=== PATIENT | male | born 1990 | race Caucasian/White ===

== ENCOUNTER → 2016-09-02 | Outpatient (CLI) | payer BC ==
[2016-09-02 19:45] LABS: Basophils # (A) 0.1 k/uL (0-0.2); Basophils % (A) 1 %; CH 29.4; CHCM 33.2; Eosinophils # (A) 0.4 k/uL (0-0.7); Eosinophils % (A) 4 %; HCT 50.1 % (39.0-53.0); HDW 2.43; HGB 16.6 gm/dL (13.0-17.5); Luc # (Auto) 0.18; Luc % (Auto) 2; Lymphocytes # (A) 2.8 k/uL (1.0-4.8); Lymphocytes % (A) 28 %; MCH 29.4 pg (25.0-35.0); MCV 88.9 fL (80.0-100.0); Mean Platelet Volume 8.9; Monocytes # (A) 0.6 k/uL (0-1.0); Monocytes % (A) 6 %; Neutrophils # (A) 6.1 k/uL (1.3-7.7); Neutrophils % (A) 60 %; RBC 5.63 m/uL (4.30-5.90); RDW 12.5 % (11.5-15.5); WBC 10.1 k/uL (3.8-10.6); WBC (Perox) 10.27
[2016-09-02 20:04] LABS: ALT 42 U/L (21-72); AST 30 U/L (17-59); Alkaline Phosphatase 75 U/L (38-126); Anion Gap 13 mmol/L; Blood Urea Nitrogen 17 mg/dL (9-20); Calcium 9.7 mg/dL (8.4-10.2); Carbon Dioxide 22 mmol/L (22-30); Chloride 109 mmol/L (98-107); Cholesterol 133 mg/dL (<200); Glucose 93 mg/dL (74-99); HDL Cholesterol 39 mg/dL (40-60); Non-African American GFR(MDRD) >60 (>60 ml/min/1.73 sqM); Potassium 4.1 mmol/L (3.5-5.1); Sodium 144 mmol/L (137-145); Total Bilirubin 0.6 mg/dL (0.2-1.3); Total Protein 7.5 g/dL (6.3-8.2); Triglycerides 120 mg/dL (<150)
[2016-09-04 14:02] LABS: Gliadin AB IgA, Deaminated 6 UNITS (<20); Gliadin AB IgG, Deaminated 2 UNITS (<20)
== END | disposition home or self-care (01) ==
LOC: MMGSC 10:10
PROVIDERS: ATTEND Family Medicine
DX: K92.1 Melena (principal); R10.9 Unspecified abdominal pain
CPT/HCPCS: 36415; 80053; 80061; 83516; 84439; 84443; 85025; 86003

== ENCOUNTER 2016-10-08 11:24 | Emergency (ER) | payer BC ==
--- NOTE | 2016-10-08 12:40 | ED ---
GI Bleed HPI - General Chief complaint: GI Bleed Stated complaint: blood in stool Time Seen by Provider: 10/08/16 12:15 Source: patient, RN notes reviewed Mode of arrival: ambulatory Limitations: no limitations - History of Present Illness Initial comments: 26-year-old male presents emergency Department chief complaint of rectal bleeding. Patient states she's had symptoms on and off for last month or 2. Patient states that his been at [facility] and to his primary care physician. Patient states he is scheduled to see GI physician Dr. Martin on October 13. Patient states that he had more episodes today so he was concerned. Patient states she has no abdominal pain. Denies any nausea, vomiting diarrhea. Patient states he didn't strain dental bowel movement feels that this may have caused it. Patient denies any abdominal surgeries in the past. Denies any dysuria or hematuria. - Related Data Home Medications Medication Instructions Recorded Confirmed Albuterol Inhaler [Ventolin Hfa 2 puff INHALATION RT-Q6H PRN 10/08/16 10/08/16 Inhaler] Polyethylene Glycol 3350 [Miralax] 17 gm PO DAILY PRN 10/08/16 10/08/16 Previous Rx's Medication Instructions Recorded Hydrocortisone/Pramoxine 0 applic RECTAL BID #1 bottle 10/08/16 [Proctofoam-Hc 1%-1% Foam] Allergies Allergy/AdvReac Type Severity Reaction Status Date / Time No Known Allergies Allergy Verified 10/08/16 12:14 Review of Systems ROS Statement: Those systems with pertinent positive or pertinent negative responses have been documented in the HPI. ROS Other: All systems not noted in ROS Statement are negative. Past Medical History Past Medical History: No Reported History History of Any Multi-Drug Resistant Organisms: None Reported Past Psychological History: No Psychological Hx Reported Smoking Status: Current every day smoker Past Alcohol Use History: None Reported Past Drug Use History: None Reported General Exam Limitations: no limitations General appearance: alert, in no apparent distress Head exam: Present: atraumatic, normocephalic, normal inspection Neck exam: Present: normal inspection. Absent: tenderness, meningismus, lymphadenopathy Respiratory exam: Present: normal lung sounds bilaterally. Absent: respiratory distress, wheezes, rales, rhonchi, stridor Cardiovascular Exam: Present: regular rate, normal rhythm, normal heart sounds. Absent: systolic murmur, diastolic murmur, rubs, gallop, clicks GI/Abdominal exam: Present: soft, normal bowel sounds. Absent: distended, tenderness, guarding, rebound, rigid Rectal exam: Present: normal inspection, normal rectal tone. Absent: black stool, bloody stool, hemorrhoids, mass Back exam: Absent: CVA tenderness (R), CVA tenderness (L) Course Vital Signs 10/08/16 11:28 Temperature 97.7 F Pulse Rate 72 Respiratory 18 Rate Blood Pressure 128/81 O2 Sat by Pulse 99 Oximetry Medical Decision Making - Medical Decision Making 26 showed male present emergency department with chief complaint of rectal bleeding. Patient's hemoglobin is stable at 15.6. Patient has appointment 5 days with GI. Patient will begin Proctofoam. Return parameters were discussed. - Lab Data Result diagrams: 10/08/16 12:30 Lab Results 10/08/16 10/08/16 Range/Units 12:30 12:30 WBC 7.5 (3.8-10.6) k/uL RBC 5.15 (4.30-5.90) m/uL Hgb 15.6 (13.0-17.5) gm/dL Hct 44.2 (39.0-53.0) % MCV 85.8 (80.0-100.0) fL MCH 30.3 (25.0-35.0) pg MCHC 35.3 (31.0-37.0) g/dL RDW 12.6 (11.5-15.5) % Plt Count 228 (150-450) k/uL Neutrophils % 59 % Lymphocytes % 28 % Monocytes % 6 % Eosinophils % 5 % Basophils % 1 % Neutrophils # 4.4 (1.3-7.7) k/uL Lymphocytes # 2.1 (1.0-4.8) k/uL Monocytes # 0.5 (0-1.0) k/uL Eosinophils # 0.4 (0-0.7) k/uL Basophils # 0.0 (0-0.2) k/uL Stool Occult Blood Positive (Negative) Disposition Clinical Impression: Rectal bleeding Disposition: HOME SELF-CARE Condition: Stable Instructions: Gastrointestinal Bleeding (ED) Additional Instructions: Please return to the Emergency Department if symptoms worsen or any other concerns. Prescriptions: Hydrocortisone/Pramoxine [Proctofoam-Hc 1%-1% Foam] 0 applic RECTAL BID #1 bottle Referrals: Angie Alcantar MD [Primary Care Provider] - 1-2 days Mague Martin MD [STAFF PHYSICIAN] - 1-2 days Time of Disposition: 13:14
[2016-10-08 12:57] LABS: Basophils % (A) 1 %; CH 29.9; Eosinophils # (A) 0.4 k/uL (0-0.7); Eosinophils % (A) 5 %; HCT 44.2 % (39.0-53.0); HDW 2.57; HGB 15.6 gm/dL (13.0-17.5); Luc # (Auto) 0.11; Luc % (Auto) 1; Lymphocytes # (A) 2.1 k/uL (1.0-4.8); Lymphocytes % (A) 28 %; MCH 30.3 pg (25.0-35.0); MCHC 35.3 g/dL (31.0-37.0); MCV 85.8 fL (80.0-100.0); Mean Platelet Volume 7.5; Monocytes # (A) 0.5 k/uL (0-1.0); Monocytes % (A) 6 %; Neutrophils # (A) 4.4 k/uL (1.3-7.7); Neutrophils % (A) 59 %; RBC 5.15 m/uL (4.30-5.90); RDW 12.6 % (11.5-15.5); WBC 7.5 k/uL (3.8-10.6); WBC (Perox) 7.58
[2016-10-08 13:04] LABS: INR 0.9 (<1.1); Prothrombin Time 9.7 sec (9.0-12.0)
[2016-10-08 13:14] LABS: Anion Gap 10 mmol/L; Blood Urea Nitrogen 17 mg/dL (9-20); Calcium 9.6 mg/dL (8.4-10.2); Carbon Dioxide 22 mmol/L (22-30); Chloride 110 mmol/L (98-107); Glucose 99 mg/dL (74-99); Non-African American GFR(MDRD) >60 (>60 ml/min/1.73 sqM); Potassium 4.3 mmol/L (3.5-5.1); Sodium 142 mmol/L (137-145)
[2016-10-08 13:22] VITALS: BP 115/67; PULSE 78; RESP 20; TEMP 97
== END 2016-10-08 13:32 | disposition home or self-care (01) ==
LOC: EC 11:24
DX: K62.5 Hemorrhage of anus and rectum (principal); F17.200 Nicotine dependence, unspecified, uncomplicated
CPT/HCPCS: 36415; 80048; 82272; 85025; 85610; 99284

== ENCOUNTER 2019-05-02 22:01 | Emergency (ER) | payer BC ==
[2019-05-02 22:09] VITALS: RESP 18; TEMP 98.5
[2019-05-02] MEDS ORDERED: ACETAMINOPHEN TAB 325 MG TAB PO STA (22:19)
[2019-05-02] MEDS ORDERED: LIDOCAINE 1% INJ 10MG/ML (20 ML MDV) SQ ONE (22:22)
--- NOTE | 2019-05-02 22:41 | CT ---
EXAMINATION TYPE: CT brain eladio herrera con DATE OF EXAM: 05/02/2019 COMPARISON: None HISTORY: Fall, head injury. CT DLP: 1643.8 mGycm Automated exposure control for dose reduction was used. TECHNIQUE: CT scan of the head and cervical spine are performed without contrast. FINDINGS: Ventricles of normal size. There is no mass effect nor midline shift. There is no sign of intracranial hemorrhage. There is no evidence of cerebral edema. The calvarium is intact. There is m ucus retention cyst right maxillary sinus. Cervical vertebra show some straightening. Disc spaces are fairly normal. Posterior elements are inta ct. Facet joints are intact. The skull base is intact. There is no evidence for fracture. Prevertebra l soft tissues appear normal. IMPRESSION: Negative CT scan of the brain. Negative CT scan cervical spine. Large mucus retention cyst right maxillary sinus. Minimal left maxillary sinusitis.
--- NOTE | 2019-05-02 23:06 | ED ---
General Adult HPI - General Chief complaint: Wound/Laceration Stated complaint: head wound Time Seen by Provider: 05/02/19 22:07 Source: patient Mode of arrival: ambulatory Limitations: no limitations - History of Present Illness Initial comments: Patient is a 29-year-old male presenting to emergency Department with a chief complaint of a head laceration. Patient reports that he was walking up the stairs when he bent over and he hit his head on the wall. Patient reports he was "seeing stars" but denies any nausea or vomiting or loss of consciousness. Patient denies any blurry vision, gait instability, paresthesias. Patient reports the pain is very mild and throbbing in nature. Patient reports some active bleeding at the time of injury in the parietal region. Patient denies taking medication to alleviate the symptoms. Patient reports his tetanus status is up-to-date. Patient is not on blood thinners. - Related Data Home Medications Medication Instructions Recorded Confirmed Albuterol Inhaler [Ventolin Hfa 2 puff INHALATION RT-Q6H PRN 10/08/16 10/08/16 Inhaler] Polyethylene Glycol 3350 [Miralax] 17 gm PO DAILY PRN 10/08/16 10/08/16 Previous Rx's Medication Instructions Recorded Hydrocortisone/Pramoxine 0 applic RECTAL BID #1 bottle 10/08/16 [Proctofoam-Hc 1%-1% Foam] Allergies Allergy/AdvReac Type Severity Reaction Status Date / Time No Known Allergies Allergy Verified 05/02/19 22:09 Review of Systems ROS Statement: Those systems with pertinent positive or pertinent negative responses have been documented in the HPI. ROS Other: All systems not noted in ROS Statement are negative. Past Medical History Past Medical History: No Reported History History of Any Multi-Drug Resistant Organisms: None Reported Additional Past Surgical History / Comment(s): head surgery as a kid. Past Psychological History: No Psychological Hx Reported Smoking Status: Current every day smoker Past Alcohol Use History: Rare Past Drug Use History: Marijuana General Exam Limitations: no limitations General appearance: alert, in no apparent distress Head exam: Present: normocephalic, normal inspection. Absent: atraumatic (2 cm superficial laceration on the parietal region.), other (Negative Powell sign, negative periorbital ecchymosis, negative hemotympanum.) Eye exam: Present: normal appearance, PERRL, EOMI Pupils: Present: normal accommodation ENT exam: Present: normal exam, normal oropharynx, mucous membranes moist, TM's normal bilaterally, normal external ear exam Neck exam: Present: normal inspection, full ROM Respiratory exam: Present: normal lung sounds bilaterally Cardiovascular Exam: Present: regular rate, normal rhythm, normal heart sounds Extremities exam: Present: normal inspection, full ROM Back exam: Present: normal inspection, full ROM Neurological exam: Present: alert, oriented X3, CN II-XII intact, normal gait Psychiatric exam: Present: normal affect, normal mood Skin exam: Present: warm, dry, intact, normal color Course Vital Signs 05/02/19 05/02/19 22:05 23:05 Temperature 98.5 F Pulse Rate 80 60 Respiratory 18 18 Rate Blood Pressure 163/75 129/69 O2 Sat by Pulse 97 98 Oximetry Procedures - Laceration Laceration #1 Consent Obtained: verbal consent Indication: laceration Site: scalp Size (cm): 2 Description: linear Depth: simple, single layer Sedation/Analgesia: none Anesthetic Used: lidocaine 1% Anesthesia Technique: local infiltration Amount (mls): 5 Pre-repair: irrigated extensively Type of Sutures: other ([place]) Size of Sutures: other (Alla) Number of Sutures: 6 Technique: other (Alla) Patient Tolerated Procedure: well, no complications Medical Decision Making - Medical Decision Making patient is a 29-year-old male presenting to the emergency department with a chief complaint of a head injury. Physical examination it appears to be a laceration about 2 cm it is superficial in nature. No bony deformities. CT of the brain is negative for acute fractures, dislocations, intracranial hemorrhage. Laceration site was thoroughly cleaned and 6 alla were placed. Patient advised about proper wound care instructions. Strict return parameters were thoroughly discussed with patient is understanding and agreeable. Patient is to return to emergency department in 10-14 days for suture removal. Case discussed with physician. Disposition Clinical Impression: Laceration Disposition: HOME SELF-CARE Condition: Stable Instructions (If sedation given, give patient instructions): Laceration (DC), Staple Care (ED) Additional Instructions: Please follow proper wound care instructions. Please return to emergency department if symptoms worsen. Please return to the emergency department for suture removal in 10-14 days. Is patient prescribed a controlled substance at d/c from ED?: No Referrals: None,Stated [Primary Care Provider] - 1-2 days Time of Disposition: 23:07
[2019-05-02 23:10] VITALS: BP 129/69; PULSE 60
== END 2019-05-02 23:31 | disposition home or self-care (01) ==
LOC: EC 22:01
DX: S01.01XA Laceration without foreign body of scalp, initial encounter (principal); F17.200 Nicotine dependence, unspecified, uncomplicated; Z98.890 Other specified postprocedural states; W22.01XA Walked into wall, initial encounter; Y93.01 Activity, walking, marching and hiking; Y92.009 Unspecified place in unspecified non-institutional (private) residence as the place of occurrence of the external cause
CPT/HCPCS: 72125; 70450; 99283; 12001; J2001

== ENCOUNTER 2020-09-21 04:48 | Emergency (ER) | payer BC ==
[2020-09-21 05:02] VITALS: TEMP 98
[2020-09-21] MEDS ORDERED: LIDOCAINE 4% CREAM 5 GM TUBE TOPICAL ONE (06:27)
--- NOTE | 2020-09-21 06:32 | ED ---
General Adult HPI - General Chief complaint: GI Bleed Stated complaint: Rectal Pain Time Seen by Provider: 09/21/20 06:14 Source: patient, RN notes reviewed Mode of arrival: ambulatory Limitations: no limitations - History of Present Illness Initial comments: 30-year-old male presents emergency Department chief complaint rectal pain. Patient states that the certification for a bowel movement. Patient states he has strained of vomiting. Patient states that his been trying to eat better increase fluid intake have air bowel movements with stool softener. He states that he's gone more frequently which is causing some discomfort. Patient states that he noticed some blood when he went to the bathroom. Patient has no abdominal pain fevers chills no prior GI GI disorders. Patient states been told he has had an anal fissure in the past - Related Data Home Medications Medication Instructions Recorded Confirmed Albuterol Inhaler (Mhu) [Ventolin 2 puff INHALATION RT-Q6H PRN 10/08/16 10/08/16 Hfa Inhaler] Polyethylene Glycol 3350 [Miralax] 17 gm PO DAILY PRN 10/08/16 10/08/16 Previous Rx's Medication Instructions Recorded Hydrocortisone/Pramoxine 0 applic RECTAL BID #1 bottle 10/08/16 [Proctofoam-Hc 1%-1% Foam] Hydrocortisone [Anusol-Hc] 1 applic RECTAL BID #30 gm 09/21/20 Allergies Allergy/AdvReac Type Severity Reaction Status Date / Time No Known Allergies Allergy Verified 09/21/20 05:02 Review of Systems ROS Statement: Those systems with pertinent positive or pertinent negative responses have been documented in the HPI. ROS Other: All systems not noted in ROS Statement are negative. Past Medical History Past Medical History: No Reported History History of Any Multi-Drug Resistant Organisms: None Reported Additional Past Surgical History / Comment(s): head surgery as a kid. Past Psychological History: No Psychological Hx Reported Smoking Status: Current every day smoker Past Alcohol Use History: Rare Past Drug Use History: Marijuana General Exam Limitations: no limitations General appearance: alert, in no apparent distress Head exam: Present: atraumatic, normocephalic, normal inspection Neck exam: Present: normal inspection. Absent: tenderness, meningismus, lymphadenopathy Respiratory exam: Present: normal lung sounds bilaterally. Absent: respiratory distress, wheezes, rales, rhonchi, stridor Cardiovascular Exam: Present: regular rate, normal rhythm, normal heart sounds. Absent: systolic murmur, diastolic murmur, rubs, gallop, clicks GI/Abdominal exam: Present: soft, normal bowel sounds. Absent: distended, tenderness, guarding, rebound, rigid Rectal exam: Absent: normal inspection (Small anal fissure noted, small hemorrhoid noted) Course Vital Signs 09/21/20 04:58 Temperature 98 F Pulse Rate 78 Respiratory 18 Rate Blood Pressure 142/91 O2 Sat by Pulse 98 Oximetry Medical Decision Making - Medical Decision Making Patient has small hemorrhoid and anal fissure. Patient will be given topical steroids topical lidocaine. Patient instructed to continue soft bowel movements. Disposition Clinical Impression: Anal fissure, Hemorrhoid Disposition: HOME SELF-CARE Condition: Stable Instructions (If sedation given, give patient instructions): Hemorrhoids (ED) Additional Instructions: Please return to the Emergency Department if symptoms worsen or any other concerns. Prescriptions: Hydrocortisone [Anusol-Hc] 1 applic RECTAL BID #30 gm Is patient prescribed a controlled substance at d/c from ED?: No Referrals: None,Stated [Primary Care Provider] - 1-2 days Eduardo Caballero MD [STAFF PHYSICIAN] - 1-2 days Time of Disposition: 06:30
[2020-09-21 06:49] VITALS: BP 131/78; PULSE 77; RESP 16
== END 2020-09-21 06:50 | disposition home or self-care (01) ==
LOC: EC 04:48
DX: K60.2 Anal fissure, unspecified (principal); K64.9 Unspecified hemorrhoids; F17.200 Nicotine dependence, unspecified, uncomplicated; F12.90 Cannabis use, unspecified, uncomplicated
CPT/HCPCS: 99283

== ENCOUNTER 2020-12-16 | Emergency (ER) | payer BC | END 2020-12-16 18:46 | disposition home or self-care (01) | CPT/HCPCS: 99284; 12001; 96365; 96374; 90471; 73130; 90715; J0690; J2001; J1170 ==

== ENCOUNTER 2020-12-17 09:36 | Emergency (ER) | payer BC ==
[2020-12-17] MEDS ORDERED: GELATIN SPONGE,ABSORB (SMALL) 1 EACH SPONGE TOPICAL STA (10:33)
[2020-12-17] MEDS ORDERED: HYDROcodone/APAP 5-325MG 1 EACH TAB PO STA (10:37)
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
[2020-12-17 11:06] VITALS: BP 118/81; PULSE 82; RESP 18; TEMP 98.1
== END 2020-12-17 10:55 | disposition home or self-care (01) ==
LOC: EC 09:36
DX: S61.011A Laceration without foreign body of right thumb without damage to nail, initial encounter (principal); Z48.00 Encounter for change or removal of nonsurgical wound dressing; Z87.891 Personal history of nicotine dependence; W39.XXXA Discharge of firework, initial encounter
CPT/HCPCS: 99283

== ENCOUNTER 2020-12-31 16:01 | Emergency (ER) | payer BC ==
[2020-12-31 16:10] VITALS: TEMP 98.1
[2020-12-31] MEDS ORDERED: MORPHINE SULFATE 4 MG/ML SYRINGE IM STA (16:16)
--- NOTE | 2020-12-31 17:24 | XR ---
EXAMINATION TYPE: XR foot complete RT DATE OF EXAM: 12/31/2020 COMPARISON: NONE HISTORY: Fall. Pain. TECHNIQUE: 3 views FINDINGS: Metatarsals are intact. I see no fracture nor dislocation. Joint spaces are fairly normal. There are no erosions. IMPRESSION: Negative right foot exam
--- NOTE | 2020-12-31 17:25 | XR ---
EXAMINATION TYPE: XR ankle complete RT DATE OF EXAM: 12/31/2020 COMPARISON: NONE HISTORY: Fall. Pain. TECHNIQUE: 3 views FINDINGS: Ankle mortise is anatomic. I see no fracture nor dislocation. Joint spaces are fairly grace l. IMPRESSION: Negative right ankle exam.
[2020-12-31] MEDS ORDERED: ACET/COD 300 MG/30 MG STARTER PACK 6 TAB BTL PO STA (17:36)
--- NOTE | 2020-12-31 17:50 | ED ---
Lower Extremity Injury HPI - General Chief Complaint: Extremity Injury, Lower Stated Complaint: RT ankle injury Time Seen by Provider: 12/31/20 16:12 Source: patient, RN notes reviewed Mode of arrival: wheelchair Limitations: physical limitation - History of Present Illness Initial Comments: Patient is a 30-year-old male that presents to the emergency department complaining of right ankle pain after falling off his porch 1-2 feet and rolling his ankle. He notes that he did feel several crunches. He did note that his pain is about a 9-10 out of 10 with no relief from at home medications. He did have an icepack on it. He notes that it was swollen pretty good. He denied any other issues or complaints. He did have full range of motion and sensation in his right foot. He denied any chest pain shortness breath headache nausea vomiting diarrhea constipation fever fatigue chills. - Related Data Previous Rx's Medication Instructions Recorded Cephalexin [Keflex] 500 mg PO QID #40 cap 12/16/20 Allergies Allergy/AdvReac Type Severity Reaction Status Date / Time No Known Allergies Allergy Verified 12/31/20 16:10 Review of Systems ROS Statement: Those systems with pertinent positive or pertinent negative responses have been documented in the HPI. ROS Other: All systems not noted in ROS Statement are negative. Past Medical History Past Medical History: No Reported History History of Any Multi-Drug Resistant Organisms: None Reported Additional Past Surgical History / Comment(s): head surgery as a kid. Past Psychological History: No Psychological Hx Reported Smoking Status: Former smoker Past Alcohol Use History: Rare Past Drug Use History: None Reported General Exam Limitations: physical limitation General appearance: alert, in no apparent distress Head exam: Present: atraumatic, normocephalic, normal inspection Eye exam: Present: normal appearance, PERRL, EOMI. Absent: scleral icterus, conjunctival injection, periorbital swelling Neck exam: Present: normal inspection Respiratory exam: Present: normal lung sounds bilaterally. Absent: respiratory distress, wheezes, rales, rhonchi, stridor Cardiovascular Exam: Present: regular rate, normal rhythm, normal heart sounds. Absent: systolic murmur, diastolic murmur, rubs, gallop, clicks Right Ankle exam: Present: tenderness (Over the lateral aspect), swelling. Absent: normal inspection, full ROM (Secondary to pain), abrasion, laceration, ecchymosis Neurological exam: Present: alert, oriented X3 Psychiatric exam: Present: normal affect, normal mood Skin exam: Present: warm, dry, intact, normal color. Absent: rash Course Vital Signs 12/31/20 16:07 Temperature 98.1 F Pulse Rate 103 H Respiratory 17 Rate Blood Pressure 143/86 O2 Sat by Pulse 98 Oximetry Procedures - Orthopedic Splinting/Casting Injury #1 Side: right Lower Extremity Injury Location: ankle Lower Extremity Immobilizer: posterior splint, Melchor wrap, synthetic pre-padded splint Medical Decision Making - Medical Decision Making Patient is a 30-year-old male that presents with right ankle pain after falling off his porch 1-2 feet and rolling his ankle. X-ray of the right ankle, x-ray of right foot, 4 mg of morphine ordered. X-ray imaging negative for any acute fractures or dislocations. Case discussed with Dr. Dahl, patient discharge home with follow-up to orthopedist. - Radiology Data Radiology results: report reviewed, image reviewed X-ray of the right ankle: Negative right ankle exam. X-ray of the right foot: Negative right foot exam. Disposition Clinical Impression: Right ankle sprain Disposition: HOME SELF-CARE Condition: Stable Instructions (If sedation given, give patient instructions): Ankle Sprain (ED) Additional Instructions: Please return to the Emergency Department if symptoms worsen or any other concerns. Follow-up with orthopedist as planned on Thursday. Take Tylenol Motrin as needed for pain. Avoid any strenuous activity or exercise. Use right ankle as tolerated. Is patient prescribed a controlled substance at d/c from ED?: No Referrals: None,Stated [Primary Care Provider] - 1-2 days Time of Disposition: 17:52
[2020-12-31 18:01] VITALS: BP 144/87; PULSE 89; RESP 18
== END 2020-12-31 18:01 | disposition home or self-care (01) ==
LOC: EC 16:01
DX: S93.401A Sprain of unspecified ligament of right ankle, initial encounter (principal); Z87.891 Personal history of nicotine dependence; W19.XXXA Unspecified fall, initial encounter; X50.9XXA Other and unspecified overexertion or strenuous movements or postures, initial encounter; Y92.89 Other specified places as the place of occurrence of the external cause
CPT/HCPCS: 73610; 73630; 99283; 29515; 96372; J2270

== ENCOUNTER 2022-11-25 09:46 | Emergency (ER) | payer BC, OTHER ==
--- NOTE | 2022-11-25 10:34 | ED ---
General Adult HPI - General Chief complaint: Wound/Laceration Stated complaint: Cut thumb Time Seen by Provider: 11/25/22 10:07 Source: patient, RN notes reviewed Mode of arrival: ambulatory Limitations: no limitations - History of Present Illness Initial comments: 32-year-old male with no significant past medical history presents to the emergency department with a chief complaint of right thumb laceration. Patient reports he was attempting to open his car with a somewhat when it slipped and cut his right thumb. He reports bleeding and pain at the site. He denies any numbness, tingling, weakness in the extremity. He denies any pain proximal to his thumb. He is up-to-date on his tetanus vaccine. - Related Data Previous Rx's Medication Instructions Recorded Cephalexin [Keflex] 500 mg PO QID #40 cap 12/16/20 Allergies Allergy/AdvReac Type Severity Reaction Status Date / Time No Known Allergies Allergy Verified 11/25/22 09:52 Review of Systems ROS Statement: Those systems with pertinent positive or pertinent negative responses have been documented in the HPI. ROS Other: All systems not noted in ROS Statement are negative. Past Medical History Past Medical History: No Reported History History of Any Multi-Drug Resistant Organisms: None Reported Additional Past Surgical History / Comment(s): head surgery as a kid. Past Psychological History: No Psychological Hx Reported Smoking Status: Former smoker Past Alcohol Use History: Rare Past Drug Use History: Marijuana General Exam - General Exam Comments Initial Comments: General: Alert, in no acute distress Head: atraumatic normocephalic. Eyes PERRL, EOMI intact, mucous membranes moist Respiratory: Lungs clear to auscultation bilaterally Cardiovascular: Heart rate regular rate and rhythm Abdominal: Soft without guarding or rebound Extremities: Normal inspection with full range of motion and normal capillary refill, right thumb with 1cm laceration without active bleeding. Full range of motion. Distal NVI remains intact. There are scars from a previous injury that appear well healed. 2+ radial pulses Neuroogic: alert and oriented 3, CN II-XII intact, able to ambulate with steady gait Skin: warm dry and intact with normal color Limitations: no limitations Course Vital Signs 11/25/22 11/25/22 09:49 11:20 Temperature 98.7 F 97.6 F Pulse Rate 66 57 L Respiratory 20 18 Rate Blood Pressure 124/79 123/75 O2 Sat by Pulse 98 100 Oximetry Medical Decision Making - Medical Decision Making Was pt. sent in by a medical professional or institution (AYSHA Green, FARM MACHINERY MECHANIC, urgent c are, hospital, or [facility]...) When possible be specific @ -[No] Did you speak to anyone other than the patient for history (EMS, parent, family, police, friend...)? What history was obtained from this source @ -[No] Did you review nursing and triage notes (agree or disagree)? Why? @ -[I reviewed and agree with nursing and triage notes] Were old charts reviewed (outside hosp., previous admission, EMS record, old EKG, old radiological studies, urgent care reports/EKG's, [facility] records)? Report findings @ -[No old charts were reviewed] Differential Diagnosis (chest pain, altered mental status, abdominal pain women, abdominal pain men, vaginal bleeding, weakness, fever, dyspnea, syncope, headache, dizziness, GI bleed, back pain, seizure, CVA, palpatations, mental health, musculoskeletal)? @ -[not applicable] EKG interpreted by me (3pts min.). @ -[As above] X-rays interpreted by me (1pt min.). @ -Right thumb x-ray negative for any evidence of retained foreign body CT interpreted by me (1pt min.). @ -[None done] U/S interpreted by me (1pt. min.). @ -[None done] What testing was considered but not performed or refused? (CT, X-rays, U/S, labs)? Why? @ -[None] What meds were considered but not given or refused? Why? @ -[None] Did you discuss the management of the patient with other professionals (professionals i.e. AYSHA Green, FARM MACHINERY MECHANIC, lab, RT, psych nurse, social media marketing specialist, corporate development analyst, teacher, loan workout officer, classification case manager)? Give summary @ -[No] Was smoking cessation discussed for >3mins.? @ -[No] Was critical care preformed (if so, how long)? @ -[No] Were there social determinants of health that impacted care today? How? (Homelessness, low income, unemployed, alcoholism, drug addiction, transportation, low edu. Level, literacy, decrease access to med. care, prison, rehab)? @ -[No] Was there de-escalation of care discussed even if they declined (Discuss DNR or withdrawal of care, Hospice)? DNR status @ -[No] What co-morbidities impacted this encounter? (DM, HTN, Smoking, COPD, CAD, Cancer, CVA, ARF, Chemo, Hep., AIDS, mental health diagnosis, sleep apnea, morbid obesity)? @ -[None] Was patient admitted / discharged? Hospital course, mention meds given and route, prescriptions, significant lab abnormalities, going to OR and other pertinent info. @ -Discharged. This is a pleasant 32-year-old male presents to the emergency department with a chief complaint of right thumb laceration. Physical exam performed while in the ED. Physical exam reveals a 1 cm laceration to right thumb without active bleeding or crepitus. Full range of motion. 2+ radial pulses bilaterally. Patient had imaging performed within essentially unremarkable. I discussed the results in detail with the patient verbalized understanding and all questions were addressed. Return precautions were discussed at length. She will be discharged home in stable condition. Case discussed with RENNY Srivastava who agrees with plan of care. Undiagnosed new problem with uncertain prognosis? @ -[No] Drug Therapy requiring intensive monitoring for toxicity (Heparin, Nitro, Insulin, Cardizem)? @ -[No] Were any procedures done? @ -[No] Diagnosis/symptom? @ -Right thumb laceration Acute, or Chronic, or Acute on Chronic? @ -Acute Uncomplicated (without systemic symptoms) or Complicated (systemic symptoms)? @ -uncomplicated Side effects of treatment? @ -[No] Exacerbation, Progression, or Severe Exacerbation? @ -[No] Poses a threat to life or bodily function? How? (Chest pain, [place], [place], pneumonia, PE, COPD, DKA, ARF, appy, cholecystitis, CVA, Diverticulitis, Homicidal, Suicidal, threat to staff... and all critical care pts) @ -Low likelihood Disposition Clinical Impression: Laceration Disposition: HOME SELF-CARE Condition: Stable Instructions (If sedation given, give patient instructions): Laceration (ED) Additional Instructions: Please return to the nearest emergency department if symptoms worsen or persist Is patient prescribed a controlled substance at d/c from ED?: No Referrals: None,Stated [Primary Care Provider] - 1-2 days Time of Disposition: 10:54
--- NOTE | 2022-11-25 10:42 | XR ---
EXAMINATION TYPE: XR hand complete RT DATE OF EXAM: 11/25/2022 10:36 AM INDICATION: Patient age:Male; 32 years old; Reason for study: r/out FB in R thumb; [facility]. COMPARISON: Right hand radiograph 12/16/2020 TECHNIQUE: Frontal, lateral and oblique views of the right hand were obtained. FINDINGS: Normal alignment of the visualized joints. No acute osseous pathology is identified. 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 No evidence of soft tissue swelli ng. No definitive radiopaque foreign body. IMPRESSION: 1. No acute osseous pathology. No definitive radiopaque foreign body. 2. Remote right thumb with associated chip fracture.
[2022-11-25] MEDS ORDERED: NEOMYCIN-BACITRACIN-POLY OINT 14 GM TUBE TOPICAL STA (10:52)
[2022-11-25 11:22] VITALS: BP 123/75; PULSE 57; RESP 18; TEMP 97.6
== END 2022-11-25 11:21 | disposition home or self-care (01) ==
LOC: EC 09:46
DX: S61.011A Laceration without foreign body of right thumb without damage to nail, initial encounter (principal); F12.90 Cannabis use, unspecified, uncomplicated; Z87.891 Personal history of nicotine dependence; W45.8XXA Other foreign body or object entering through skin, initial encounter
CPT/HCPCS: 99283

== ENCOUNTER 2023-07-15 11:05 | Day surgery (SDC) | payer OTHER ==
[2023-07-10 16:07] VITALS: BMI 31.7
[~2023-07-15 11:05] MED LIST: LACTATED RINGERS 1,000 ML IV SCH
[2023-07-15 12:23] VITALS: TEMP 97.6
[2023-07-15] MEDS ORDERED: PROPOFOL 10 MG/ML 20 ML VIAL IV ONE (13:16)
--- NOTE | 2023-07-15 13:29 | P.PCN ---
Date of Procedure: 07/15/23 Procedure(s) Performed: BRIEF HISTORY: Patient is a 33-year-old pleasant white male scheduled for an elective colonoscopy as a part of evaluation of intermittent rectal bleeding for the last 1 year duration. PROCEDURE PERFORMED: Colonoscopy with snare polypectomy PREOPERATIVE DIAGNOSIS: Rectal bleeding. IV sedation per Anesthesia. PROCEDURE: After informed consent was obtained, the patient, was brought into the endoscopy unit. IV sedation was administered by Anesthesia under continuous monitoring. Digital rectal examination was normal. Initially the Olympus CF-160 flexible video colonoscope was then inserted in the rectum, gradually advanced into the cecum without any difficulty. Careful examination was performed as the scope was gradually being withdrawn. Ileocecal valve and the appendiceal orifice were visualized and appeared normal. Prep was excellent. Mucosa of the cecum, a normal. In the ascending colon there was an 8 mm sessile polyp removed by cold snare polypectomy. Rest of the ascending colon, transverse colon, descending colon, sigmoid colon, and rectum appeared normal. Retroflexion was performed in the rectum and grade 2 internal hemorrhoids were seen. The patient tolerated the procedure well. IMPRESSION: 8 millimeters ascending colon polyp status post cold snare polypectomy Grade 2 internal hemorrhoids . RECOMMENDATIONS: Findings of this examination were discussed with the patient as well as his family. He was advised to follow with the biopsy results. in the meantime recommended to be on a high-fiber diet and take fiber supplements on a regular basis and avoid straining and constipation. If the biopsy result adenoma, recommend repeat colonoscopy in 5 years.
[2023-07-15 14:20] VITALS: BP 110/70; PULSE 73; RESP 18
== END 2023-07-15 14:25 | disposition home or self-care (01) ==
LOC: ORWHC2ENDO 11:05
PROVIDERS: ATTEND Internal Medicine Gastroenterology
DX: D12.2 Benign neoplasm of ascending colon (principal); K64.1 Second degree hemorrhoids; K62.5 Hemorrhage of anus and rectum; F17.290 Nicotine dependence, other tobacco product, uncomplicated
CPT/HCPCS: 88305; 45385; J2704

== ENCOUNTER 2023-09-25 04:59 | Emergency (ER) | payer OTHER ==
[2023-09-25 05:14] VITALS: BP 133/93; PULSE 64; RESP 18; TEMP 98.4
--- NOTE | 2023-09-25 05:24 | ED ---
General Adult HPI - General Chief complaint: Recheck/Abnormal Lab/Rx Stated complaint: Rectal pain Time Seen by Provider: 09/25/23 05:07 Source: patient, RN notes reviewed, old records reviewed Mode of arrival: ambulatory Limitations: no limitations - History of Present Illness Initial comments: 33-year-old male presenting with rectal pain after having a hard bowel movement. He did report small amount of bleeding. He has had history of rectal pain and had colonoscopy within the past several months. He was told that he had hemorrhoids. No anterior abdominal pain. No fever. - Related Data Home Medications Medication Instructions Recorded Confirmed No Known Home Medications 07/15/23 07/15/23 Allergies Allergy/AdvReac Type Severity Reaction Status Date / Time No Known Allergies Allergy Verified 09/25/23 05:06 Review of Systems ROS Statement: Those systems with pertinent positive or pertinent negative responses have been documented in the HPI. ROS Other: All systems not noted in ROS Statement are negative. Past Medical History Past Medical History: No Reported History Additional Past Medical History / Comment(s): tinnitus left ear History of Any Multi-Drug Resistant Organisms: None Reported Additional Past Surgical History / Comment(s): head surgery as a kid. Past Anesthesia/Blood Transfusion Reactions: No Reported Reaction Additional Past Anesthesia/Blood Transfusion Reaction / Comment(s): no blood transfusion Past Psychological History: No Psychological Hx Reported Smoking Status: Current every day smoker Past Alcohol Use History: None Reported Past Drug Use History: Marijuana General Exam Limitations: no limitations General appearance: alert, in no apparent distress Head exam: Present: atraumatic, normocephalic Eye exam: Present: normal appearance, PERRL ENT exam: Present: normal exam Neck exam: Present: normal inspection. Absent: tenderness, meningismus Respiratory exam: Present: normal lung sounds bilaterally. Absent: respiratory distress, wheezes Cardiovascular Exam: Present: regular rate, normal rhythm GI/Abdominal exam: Absent: distended Rectal exam: Present: hemorrhoids (1 visible external hemorrhoid, nonthrombosed nonbleeding), tenderness. Absent: bloody stool Neurological exam: Present: alert, oriented X3, CN II-XII intact. Absent: motor sensory deficit Psychiatric exam: Present: normal affect, normal mood Skin exam: Present: warm, dry, intact Course Vital Signs 09/25/23 05:07 Temperature 98.4 F Pulse Rate 64 Respiratory 18 Rate Blood Pressure 133/93 O2 Sat by Pulse 99 Oximetry Medical Decision Making - Medical Decision Making Was pt. sent in by a medical professional or institution (AYSHA Green, INJECTION SPECIALIST, urgent care, hospital, or snf...) When possible be specific @ -No Did you speak to anyone other than the patient for history (EMS, parent, family, police, friend...)? What history was obtained from this source @ -No Did you review nursing and triage notes (agree or disagree)? Why? @ -I reviewed and agree with nursing and triage notes Were old charts reviewed (outside hosp., previous admission, EMS record, old EKG, old radiological studies, urgent care reports/EKG's, snf records)? Report findings @ -No old charts were reviewed Differential Diagnosis ( Thrombosed hemorrhoid, anal fissure, rectal mass EKG interpreted by me (3pts min.). @ -As above X-rays interpreted by me (1pt min.). @ -None done CT interpreted by me (1pt min.). @ -None done U/S interpreted by me (1pt. min.). @ -None done What testing was considered but not performed or refused? (CT, X-rays, U/S, labs)? Why? @ -None What meds were considered but not given or refused? Why? @ -None Did you discuss the management of the patient with other professionals (professionals i.e. AYSHA Green, INJECTION SPECIALIST, lab, RT, psych nurse, pediatric social worker, gasoline tester, teacher, tactical/mobile watch officer, shoe caser)? Give summary @ -No Was smoking cessation discussed for >3mins.? @ -No Was critical care preformed (if so, how long)? @ -No Were there social determinants of health that impacted care today? How? (Homelessness, low income, unemployed, alcoholism, drug addiction, transportation, low edu. Level, literacy, decrease access to med. care, detention, rehab)? @ -No Was there de-escalation of care discussed even if they declined (Discuss DNR or withdrawal of care, Hospice)? DNR status @ -No What co-morbidities impacted this encounter? (DM, HTN, Smoking, COPD, CAD, Cancer, CVA, ARF, Chemo, Hep., AIDS, mental health diagnosis, sleep apnea, morbid obesity)? @ -None Was patient admitted / discharged? Hospital course, mention meds given and route, prescriptions, significant lab abnormalities, going to OR and other pertinent info. @ -33-year-old male with history of hemorrhoids, rectal pain presenting for evaluation of rectal pain. Patient has 1 visible external hemorrhoid nonthrombosed, not bleeding. He does have significant tenderness, I suspect fissure. Given Toradol for pain. Instructed to use sitz bath and topical ointments. He is instructed to eat high-fiber diet with fiber supplementation and drink plenty of fluids. Undiagnosed new problem with uncertain prognosis? @ -No Drug Therapy requiring intensive monitoring for toxicity (Heparin, Nitro, Insulin, Cardizem)? @ -No Were any procedures done? @ -No Diagnosis/symptom? @Rectal pain, hemorrhoid Acute, or Chronic, or Acute on Chronic? @ -Acute on chronic Uncomplicated (without systemic symptoms) or Complicated (systemic symptoms)? @ -Default Side effects of treatment? @ -No Exacerbation, Progression, or Severe Exacerbation? @ -No Poses a threat to life or bodily function? How? (Chest pain, [place], [place], pneumonia, PE, COPD, DKA, ARF, appy, cholecystitis, CVA, Diverticulitis, Homicidal, Suicidal, threat to staff... and all critical care pts) @ -No Disposition Clinical Impression: Rectal pain, Hemorrhoids Disposition: HOME SELF-CARE Condition: Fair Instructions (If sedation given, give patient instructions): Rectal Pain (ED), Hemorrhoids (ED) Is patient prescribed a controlled substance at d/c from ED?: No Referrals: Bc Schaeffer MD [Primary Care Provider] - 1-2 days Time of Disposition: 05:24
[2023-09-25] MEDS: KETOROLAC 15 MG/ML 1 ML VIAL IM STA (05:30)
== END 2023-09-25 05:35 | disposition home or self-care (01) ==
LOC: EC 04:59
DX: K64.9 Unspecified hemorrhoids (principal); F17.200 Nicotine dependence, unspecified, uncomplicated; F12.90 Cannabis use, unspecified, uncomplicated
CPT/HCPCS: 99283; 96372; J1885

== ENCOUNTER 2024-04-25 04:41 | Emergency (ER) | payer OTHER ==
[2024-04-25 04:46] VITALS: RESP 18
[2024-04-25 05:23] LABS: Basophils % (A) 0 %; Eosinophils # (A) 0.7 k/uL (0-0.7); Eosinophils % (A) 7 %; HCT 42.9 % (39.0-53.0); HGB 14.4 gm/dL (13.0-17.5); Lymphocytes # (A) 2.8 k/uL (1.0-4.8); Lymphocytes % (A) 28 %; MCH 29.7 pg (25.0-35.0); MCHC 33.5 g/dL (31.0-37.0); MCV 88.8 fL (80.0-100.0); Mean Platelet Volume 8.3; Monocytes # (A) 0.4 k/uL (0-1.0); Monocytes % (A) 4 %; Neutrophils # (A) 5.9 k/uL (1.3-7.7); Neutrophils % (A) 59 %; Platelet Count 248 k/uL (150-450); RBC 4.83 m/uL (4.30-5.90); RDW 13.1 % (11.5-15.5)
[2024-04-25] MEDS: MORPHINE SULFATE 4 MG/ML SYRINGE IV STA (05:32)
[2024-04-25 05:35] LABS: ALT 25 U/L (4-49); AST 25 U/L (17-59); African American GFR (CKD) >90 (>60 ml/min/1.73 sqM); Albumin 4.5 g/dL (3.5-5.0); Alkaline Phosphatase 59 U/L (38-126); Anion Gap 5 mmol/L; Blood Urea Nitrogen 19 mg/dL (9-20); Calcium 9.4 mg/dL (8.4-10.2); Carbon Dioxide 25 mmol/L (22-30); Chloride 110 mmol/L (98-107); Glucose 103 mg/dL (74-99); Non-African American GFR(CKD) >90 (>60 ml/min/1.73 sqM); Potassium 4.4 mmol/L (3.5-5.1); Sodium 140 mmol/L (137-145); Total Bilirubin 0.2 mg/dL (0.2-1.3); Total Protein 6.9 g/dL (6.3-8.2)
--- NOTE | 2024-04-25 07:02 | ED ---
GI Bleed HPI <Rip Huberah Azeb - Last Filed: 05/02/24 00:28> - General Source: patient Mode of arrival: ambulatory Limitations: no limitations, language barrier - History of Present Illness MD complaint: blood on toilet paper Onset/Timin -: days(s) Radiation: none Quality: sharp Consistency: intermittent Improves with: none Worsens with: none Context: history of GI bleed, hemorrhoids Associated Symptoms: abdominal pain <Eliel Rey - Last Filed: 05/15/24 05:34> - General Chief complaint: GI Bleed Stated complaint: blood in stool Time Seen by Provider: 04/25/24 05:14 - History of Present Illness Initial comments: Patient is a 34-year-old man who presents with complaints of abdominal and perianal pain as well as bright red blood per rectum. Patient states that he does have history of having an external hemorrhoids, and internal hemorrhoid and he may have had anal fissure at one time. The patient states that for the past 2 days when he has bowel movement he has bright red blood on the paper. He is not seeing any melanotic or maroon stools. Not passing clots. The patient denies signs or symptoms of anemia. No lightheadedness, palpitations, dyspnea, diaphoresis, or syncope. (Eliel Rey) - Related Data Previous Rx's Medication Instructions Recorded Hydrocortisone [Anusol-Hc] 1 applic RECTAL BID #30 gm 04/25/24 Allergies Allergy/AdvReac Type Severity Reaction Status Date / Time No Known Allergies Allergy Verified 04/25/24 04:43 Review of Systems ROS Other: All systems not noted in ROS Statement are negative. <Winsome Huber - Last Filed: 05/02/24 00:28> ROS Other: All systems not noted in ROS Statement are negative. Constitutional: Denies: fever, chills, weakness Respiratory: Denies: cough, dyspnea Cardiovascular: Denies: chest pain, palpitations, edema Gastrointestinal: Reports: abdominal pain. Denies: nausea, vomiting, diarrhea, constipation, hematemesis, melena Genitourinary: Denies: dysuria, hematuria Musculoskeletal: Denies: back pain Skin: Denies: rash Neurological: Denies: headache, weakness Hematological/Lymphatic: Denies: easy bleeding <Eliel Rey - Last Filed: 05/15/24 05:34> ROS Statement: Those systems with pertinent positive or pertinent negative responses have been documented in the HPI. Past Medical History Past Medical History: No Reported History Additional Past Medical History / Comment(s): tinnitus left ear History of Any Multi-Drug Resistant Organisms: None Reported Additional Past Surgical History / Comment(s): head surgery as a kid. Past Anesthesia/Blood Transfusion Reactions: No Reported Reaction Additional Past Anesthesia/Blood Transfusion Reaction / Comment(s): no blood transfusion Past Psychological History: No Psychological Hx Reported Smoking Status: Current every day smoker Past Alcohol Use History: None Reported Past Drug Use History: Marijuana <CandidoEliel - Last Filed: 05/15/24 05:34> General Exam Rectal exam: Present: hemorrhoids. Absent: mass <Winsome Huber Azeb - Last Filed: 05/02/24 00:28> Limitations: no limitations, language barrier General appearance: alert, in no apparent distress Head exam: Present: atraumatic, normocephalic Eye exam: Present: normal appearance. Absent: scleral icterus, conjunctival injection ENT exam: Present: normal oropharynx Respiratory exam: Present: normal lung sounds bilaterally. Absent: respiratory distress, wheezes, rales, rhonchi, stridor, accessory muscle use Cardiovascular Exam: Present: regular rate, normal rhythm, normal heart sounds. Absent: systolic murmur, diastolic murmur, rubs, gallop GI/Abdominal exam: Present: soft, tenderness. Absent: distended, guarding, rebound, rigid, mass, pulsatile mass, hernia Rectal exam: Present: normal inspection, normal rectal tone. Absent: hemorrhoids Extremities exam: Present: normal inspection, normal capillary refill. Absent: pedal edema, calf tenderness Back exam: Present: normal inspection. Absent: CVA tenderness (R), CVA tenderness (L) Neurological exam: Present: alert Skin exam: Present: warm, dry, intact, normal color. Absent: rash <CandidoEliel - Last Filed: 05/15/24 05:34> Course Vital Signs 04/25/24 04/25/24 04:43 09:22 Temperature 97.9 F 98.0 F Pulse Rate 65 61 Respiratory 18 18 Rate Blood Pressure 116/77 130/86 O2 Sat by Pulse 99 99 Oximetry Medical Decision Making - Lab Data Result diagrams: 04/25/24 05:15 04/25/24 05:15 <MayoWinsome Bowie - Last Filed: 05/02/24 00:28> - Lab Data Result diagrams: 04/25/24 05:15 04/25/24 05:15 <Eliel Rey - Last Filed: 05/15/24 05:34> - Medical Decision Making Was patient admitted / discharged? Hospital course, mention meds given and route, prescriptions, significant lab abnormalities, going to OR and other pertinent info. @ -Patient signed out to me awaiting read. I did discuss the results with the patient. I did perform my own rectal exam. Patient recently had a colonoscopy for the same complaint a couple months ago. I did prescribe the patient Anusol cream. I do feel that he needs continued GI follow-up with possible repeat endoscopy for continued pain. He states that he did follow-up with Dr. Mayer however she is hard to get back into. I did provide him with follow-up information for [facility] gastroenterology. Patient is to follow-up within 2 to 4 days with his primary care doctor. Ideally should see [facility] within the next 1 to 2 weeks. Use the Anusol cream as directed. Return for any new or worsening symptoms. Patient agreeable to plan was discharged home in stable condition Undiagnosed new problem with uncertain prognosis? @ -No Drug Therapy requiring intensive monitoring for toxicity (Heparin, Nitro, Insulin, Cardizem)? @ -No Were any procedures done? @ -No Diagnosis/symptom? @ -Acute exacerbation of chronic rectal pain, hematochezia Acute, or Chronic, or Acute on Chronic? @ -Acute on chronic Uncomplicated (without systemic symptoms) or Complicated (systemic symptoms)? @ -Complicated Side effects of treatment? @ -No Exacerbation, Progression, or Severe Exacerbation? @ -No Poses a threat to life or bodily function? How? (Chest pain, [place], [place], pneumonia, PE, COPD, DKA, ARF, appy, cholecystitis, CVA, Diverticulitis, Homicidal, Suicidal, threat to staff... and all critical care pts) @ -No (Winsome Huber) Was pt. sent in by a medical professional or institution (, PA, DIRECTOR OF RESEARCH, urgent care, hospital, or fdc...) When possible be specific @ -[No] Did you speak to anyone other than the patient for history (EMS, parent, family, police, friend...)? What history was obtained from this source @ -[No] Did you review nursing and triage notes (agree or disagree)? Why? @ -[I reviewed and agree with nursing and triage notes] Were old charts reviewed (outside hosp., previous admission, EMS record, old EKG, old radiological studies, urgent care reports/EKG's, fdc records)? Report findings @ -[No old charts were reviewed] Differential Diagnosis (chest pain, altered mental status, abdominal pain women, abdominal pain men, vaginal bleeding, weakness, fever, dyspnea, syncope, headache, dizziness, GI bleed, back pain, seizure, CVA, palpatations, mental health, musculoskeletal)? @ -[Differential GI Bleed: Esophageal varices, aortoenteric fistula, Carla-Rutherford, gastritis, peptic ulcer disease, diverticulosis, inflammatory bowel disease, hemorrhoids, fissure, coli tis, malignancy, Meckel's diverticulum, this is not meant to be an all-inclusive list. EKG interpreted by me (3pts min.). @ -[As above] X-rays interpreted by me (1pt min.). @ -[None done] CT interpreted by me (1pt min.). @ -[None done] U/S interpreted by me (1pt. min.). @ -[None done] What testing was considered but not performed or refused? (CT, X-rays, U/S, labs)? Why? @ -[None] What meds were considered but not given or refused? Why? @ -[None] Did you discuss the management of the patient with other professionals (professionals i.e. , PA, DIRECTOR OF RESEARCH, lab, RT, psych nurse, manager social, auction block clerk, teacher, deportation officer, leather case finisher)? Give summary @ -[No] Was smoking cessation discussed for >3mins.? @ -[No] Was critical care preformed (if so, how long)? @ -[No] Were there social determinants of health that impacted care today? How? (Homelessness, low income, unemployed, alcoholism, drug addiction, transportation, low edu. Level, literacy, decrease access to med. care, skilled nursing, rehab)? @ -[No] Was there de-escalation of care discussed even if they declined (Discuss DNR or withdrawal of care, Hospice)? DNR status @ -[No] What co-morbidities impacted this encounter? (DM, HTN, Smoking, COPD, CAD, Cancer, CVA, ARF, Chemo, Hep., AIDS, mental health diagnosis, sleep apnea, morbid obesity)? @ -[None] Was patient admitted / discharged? Hospital course, mention meds given and rout e, prescriptions, significant lab abnormalities, going to OR and other pertinent info. @ -[Patient is pending studies at time of shift change and signed out to the oncoming physician (Eliel Rey) - Lab Data Lab Results 04/25/24 04/25/24 04/25/24 Range/Units 05:15 05:15 05:20 WBC 10.0 (3.8-10.6) k/uL RBC 4.83 (4.30-5.90) m/uL Hgb 14.4 (13.0-17.5) gm/dL Hct 42.9 (39.0-53.0) % MCV 88.8 (80.0-100.0) fL MCH 29.7 (25.0-35.0) pg MCHC 33.5 (31.0-37.0) g/dL RDW 13.1 (11.5-15.5) % Plt Count 248 (150-450) k/uL MPV 8.3 Neutrophils % 59 % Lymphocytes % 28 % Monocytes % 4 % Eosinophils % 7 % Basophils % 0 % Neutrophils # 5.9 (1.3-7.7) k/uL Lymphocytes # 2.8 (1.0-4.8) k/uL Monocytes # 0.4 (0-1.0) k/uL Eosinophils # 0.7 (0-0.7) k/uL Basophils # 0.0 (0-0.2) k/uL Sodium 140 (137-145) mmol/L Potassium 4.4 (3.5-5.1) mmol/L Chloride 110 H (98-107) mmol/L Carbon Dioxide 25 (22-30) mmol/L Anion Gap 5 mmol/L BUN 19 (9-20) mg/dL Creatinine 0.94 (0.66-1.25) mg/dL Est GFR (CKD-EPI)AfAm >90 (>60 ml/min/1.73 sqM) Est GFR (CKD-EPI)NonAf >90 (>60 ml/min/1.73 sqM) Glucose 103 H (74-99) mg/dL Calcium 9.4 (8.4-10.2) mg/dL Total Bilirubin 0.2 (0.2-1.3) mg/dL AST 25 (17-59) U/L ALT 25 (4-49) U/L Alkaline Phosphatase 59 (38-126) U/L Total Protein 6.9 (6.3-8.2) g/dL Albumin 4.5 (3.5-5.0) g/dL Blood Type B Positive Blood Type Confirm Blood Type Recheck No Previous Record Bld Type Recheck Status CABO Indicated Antibody Screen NEGATIVE Spec Expiration Date 04/28/2024 - 231904/25/24 Range/Units 05:33 WBC (3.8-10.6) k/uL RBC (4.30-5.90) m/uL Hgb (13.0-17.5) gm/dL Hct (39.0-53.0) % MCV (80.0-100.0) fL MCH (25.0-35.0) pg MCHC (31.0-37.0) g/dL RDW (11.5-15.5) % Plt Count (150-450) k/uL MPV Neutrophils % % Lymphocytes % % Monocytes % % Eosinophils % % Basophils % % Neutrophils # (1.3-7.7) k/uL Lymphocytes # (1.0-4.8) k/uL Monocytes # (0-1.0) k/uL Eosinophils # (0-0.7) k/uL Basophils # (0-0.2) k/uL Sodium (137-145) mmol/L Potassium (3.5-5.1) mmol/L Chloride (98-107) mmol/L Carbon Dioxide (22-30) mmol/L Anion Gap mmol/L BUN (9-20) mg/dL Creatinine (0.66-1.25) mg/dL Est GFR (CKD-EPI)AfAm (>60 ml/min/1.73 sqM) Est GFR (CKD-EPI)NonAf (>60 ml/min/1.73 sqM) Glucose (74-99) mg/dL Calcium (8.4-10.2) mg/dL Total Bilirubin (0.2-1.3) mg/dL AST (17-59) U/L ALT (4-49) U/L Alkaline Phosphatase (38-126) U/L Total Protein (6.3-8.2) g/dL Albumin (3.5-5.0) g/dL Blood Type Blood Type Confirm B Positive Blood Type Recheck Bld Type Recheck Status Antibody Screen Spec Expiration Date Disposition Is patient prescribed a controlled substance at d/c from ED?: No Time of Disposition: 08:59 <Winsome Huber - Last Filed: 05/02/24 00:28> <Eliel Rey - Last Filed: 05/15/24 05:34> Clinical Impression: Rectal bleeding Disposition: HOME SELF-CARE Condition: Stable Instructions (If sedation given, give patient instructions): Gastrointestinal B ulises (ED) Additional Instructions: You need to have a colonoscopy within the next month. Please follow-up with either Dr. Martin, one of the surgeons in [facility] or the [facility] die tester to have this colonoscopy scheduled. Please return for any new or worsening symptoms Prescriptions: Hydrocortisone [Anusol-Hc] 1 applic RECTAL BID #30 gm Referrals: Bc Schaeffer MD [Primary Care Provider] - 1-2 days Ramesh Peacock DO [REFERRING] - 1-2 days Mague Martin MD [STAFF PHYSICIAN] - 1-2 days Be Rodney MD [STAFF PHYSICIAN] - 1-2 days
--- NOTE | 2024-04-25 08:02 | CT ---
EXAMINATION TYPE: CT abdomen pelvis w con DATE OF EXAM: 04/25/2024 5:57 AM COMPARISON: None. CLINICAL INDICATION: Male, 34 years old with history of LLQ pain, Pt presents with rectal bleeding TECHNIQUE: Axial images were obtained from above the diaphragm to the pubic rami in the axial plane a t 5 mm thick sections. Reconstructed images are reviewed on the computer in the coronal plane. CONTRAST: 100 mL of Isovue 300. Study performed without Oral Contrast DLP: 1215.4 mGycm, Automated exposure control for dose reduction was used. FINDINGS: Limited CT sections are obtained the lung bases. The lung bases are clear. CT ABDOMEN: Liver: Normal Spleen: Normal Pancreas: Normal Adrenal glands: The adrenal glands are normal. Gallbladder: Normal Kidneys: No masses are evident. No hydronephrosis is present. No cysts are present. Delayed images were obtained through the kidneys, which remain unremarkable. Aorta: Normal Inferior vena cava: Normal. CT PELVIS: Mild wall thickening may be within the rectosigmoid junction. Underlying neoplasm is not excluded. No obstruction is evident. There are a few scattered diverticuli without adjacent inflammatory changes suggest acute diverticulitis. The study is without contrast and bowel evaluation. Some mild fluid-priya led right lower quadrant small bowel may be present. Consider focal ileus. No obstruction is identifi ed. Appendix: Normal as visualized. Urinary bladder: Normal. Genitourinary structures: Prostate contains calcification. Osseous structures: No suspicious lytic or sclerotic lesions. Spondylolysis of L5 is evident. IMPRESSION: 1. There may be some wall thickening within the proximal rectum at the rectosigmoid junction. Additi onal evaluation colonoscopy is recommended. 2. There may be some mild small bowel ileus in the right lower quadrant. No obstruction is identified [facility], , 04/25/2024 8:00 AM
[2024-04-25 09:23] VITALS: BP 130/86; PULSE 61; TEMP 98
== END 2024-04-25 09:24 | disposition home or self-care (01) ==
LOC: EC 04:41
DX: K92.1 Melena (principal); G89.29 Other chronic pain; K62.89 Other specified diseases of anus and rectum; F17.200 Nicotine dependence, unspecified, uncomplicated
CPT/HCPCS: 99284; 96374; 36415; 86900; 86901; 80053; 85025; 86850; 74177; J2270; Q9967